=== PATIENT | male | born 1995 | race Caucasian/White ===

== ENCOUNTER 2024-04-20 13:13 | Emergency (ER) | payer OTHER ==
[~2024-04-20] VITALS: Ht 180.3 cm; Wt 75.1 kg
[2024-04-20] MEDS ORDERED: LEXA1TAB PO (13:42)
[2024-04-20] MEDS ORDERED: SUBO8MIS SL (13:42)
[2024-04-20] MEDS ORDERED: CONC36TA4 PO ×2 (13:42→15:49)
[2024-04-20 16:06] VITALS: BP 137/82; TEMP 98.9; O2SAT 98
== END 2024-04-20 16:08 | disposition home or self-care (01) ==
LOC: M ED 13:13
DX: Z76.0 Encounter for issue of repeat prescription (principal); Z79.899 Other long term (current) drug therapy

== ENCOUNTER 2024-05-20 11:56 | Emergency (ER) | payer OTHER ==
[~2024-05-20] VITALS: Ht 180.3 cm; Wt 79.4 kg
[~2024-05-20 11:56] MED LIST: CONC36TA4 PO; LEXA1TAB PO; SUBO8MIS SL
[2024-05-20 11:59] VITALS: BP 134/67; TEMP 99.3; O2SAT 97
[2024-05-20] MEDS ORDERED: METH36TA5 PO (15:09)
== END 2024-05-20 15:17 | disposition home or self-care (01) ==
LOC: M ED 11:56
DX: Z76.0 Encounter for issue of repeat prescription (principal); F90.9 Attention-deficit hyperactivity disorder, unspecified type; F32.A Depression, unspecified; F17.200 Nicotine dependence, unspecified, uncomplicated; Z79.899 Other long term (current) drug therapy

== ENCOUNTER 2024-06-14 09:32 | Emergency (ER) | payer OTHER ==
[~2024-06-14] VITALS: Ht 180.3 cm; Wt 82.4 kg
[~2024-06-14 09:32] MED LIST changes: +METH36TA5 PO
[2024-06-14 11:40] VITALS: BP 128/67; TEMP 96.7; O2SAT 100
[2024-06-14] MEDS ORDERED: CONC36TA4 PO (11:41)
[2024-06-14] MEDS ORDERED: LEXA1TAB PO (11:41)
== END 2024-06-14 11:48 | disposition home or self-care (01) ==
LOC: M ED 09:32
DX: Z76.0 Encounter for issue of repeat prescription (principal); F41.9 Anxiety disorder, unspecified; F32.A Depression, unspecified; F90.9 Attention-deficit hyperactivity disorder, unspecified type; Z79.899 Other long term (current) drug therapy

== ENCOUNTER 2024-07-11 09:30 | Emergency (ER) | payer OTHER ==
[~2024-07-11] VITALS: Ht 180.3 cm; Wt 84.5 kg
[2024-07-11 09:35] VITALS: BP 137/76; TEMP 99; O2SAT 96
[2024-07-11] MEDS ORDERED: LEXA1TAB PO (12:18)
== END 2024-07-11 12:22 | disposition home or self-care (01) ==
LOC: M ED 09:30
DX: Z76.0 Encounter for issue of repeat prescription (principal); Z79.899 Other long term (current) drug therapy